=== PATIENT | male | born 1980 | race Caucasian/White ===

== ENCOUNTER 2018-03-12 20:33 | Inpatient (IN) | payer OTHER ==
--- NOTE | 2018-03-12 21:16 | ED ---
Abdominal Pain HPI - General Chief Complaint: Abdominal Pain Stated Complaint: Apendicitis Time Seen by Provider: 03/12/18 21:00 Source: patient, RN notes reviewed, old records reviewed Mode of arrival: ambulatory Limitations: no limitations - History of Present Illness Initial Comments: This is a 37-year-old male with a benign past medical history who states he had the onset 2:30 this morning of lower abdominal pain especially in the right side no fevers no sweats she did have some chills associated with it pain was moderate in severity. Has had some nausea and a right down from [place] where he was seen in the hospital and diagnosed with appendicitis by computed tomography scan. He states she's had previous episodes perhaps for fibroid had pain like this in the past for past several years he would last 3-4 days and then go away spontaneously. This time he thought he better get it checked out. No other complaints no other modifying factors is a former smoker. Patient states he had a handful of nuts about 5:30 PM tonight. He was given IV antibiotics at the other facility. I review the material provided from the other hospital patient did have 8/10 abdominal pain that was stated to be constant and sharp with no radiation. Nothing made it better nothing made it worse. He did have a white blood cell count was elevated initially 11.11 a repeat was 12.79 WBCs. Evaluation those done initially outpatient patient was apparently seen later to hospital and transferred here. Complaint: abdominal pain - Related Data Home Medications Medication Instructions Recorded Confirmed Multivitamins, Thera [Multivitamin 1 tab PO DAILY 03/12/18 03/12/18 (formulary)] Allergies Allergy/AdvReac Type Severity Reaction Status Date / Time No Known Allergies Allergy Verified 03/12/18 20:48 Review of Systems ROS Statement: Those systems with pertinent positive or pertinent negative responses have been documented in the HPI. ROS Other: All systems not noted in ROS Statement are negative. Past Medical History Past Medical History: Hypertension Additional Past Medical History / Comment(s): Chronic neck pain History of Any Multi-Drug Resistant Organisms: None Reported Past Surgical History: Orthopedic Surgery Additional Past Surgical History / Comment(s): right knee Past Psychological History: No Psychological Hx Reported Smoking Status: Former smoker Past Alcohol Use History: Occasional Past Drug Use History: None Reported General Exam - General Exam Comments Initial Comments: This is a well-developed well-nourished awake alert oriented 3 male Limitations: no limitations General appearance: alert, in no apparent distress Head exam: Present: atraumatic, normocephalic, normal inspection Eye exam: Present: normal appearance, PERRL, EOMI. Absent: scleral icterus, conjunctival injection, periorbital swelling ENT exam: Present: normal exam, mucous membranes moist Neck exam: Present: normal inspection. Absent: tenderness, meningismus, lymphadenopathy Respiratory exam: Present: normal lung sounds bilaterally. Absent: respiratory distress, wheezes, rales, rhonchi, stridor Cardiovascular Exam: Present: regular rate, normal rhythm, normal heart sounds. Absent: systolic murmur, diastolic murmur, rubs, gallop, clicks GI/Abdominal exam: Present: soft, tenderness (Right lower quadrant tenderness palpation with some voluntary guarding no definite rebound he does have a mild Rovsing sign no obturator sign no psoas sign at this time), normal bowel sounds. Absent: distended, guarding, rebound, rigid Rectal exam: Present: deferred Extremities exam: Present: normal inspection, full ROM, normal capillary refill. Absent: tenderness, pedal edema, joint swelling, calf tenderness Back exam: Present: normal inspection Neurological exam: Present: alert, oriented X3, CN II-XII intact Psychiatric exam: Present: normal affect, normal mood Skin exam: Present: warm, dry, intact, normal color. Absent: rash Course Vital Signs 03/12/18 20:40 Temperature 97.3 F L Pulse Rate 98 Blood Pressure 163/79 O2 Sat by Pulse 97 Oximetry Medical Decision Making - Medical Decision Making I did review the imaging and reports not available there is evidence of an appendicolith with evidence of appendicitis. I did discuss findings with the patient and his family. I did discuss case with Dr. Núñez. The patient will be admitted nothing by mouth IV antibiotics IV fluids with a target of 6 AM surgery. Disposition Clinical Impression: Appendicitis, acute, Abdominal pain Disposition: ADMITTED IP TO THIS [facility] Condition: Stable Referrals: Lalo Mcdonald MD [Primary Care Provider] - 1-2 days
[2018-03-12] MEDS ORDERED: MORPHINE SULFATE 4 MG/ML SYRINGE IVP STA (21:31)
[2018-03-12] MEDS ORDERED: MORPHINE SULFATE 4 MG/ML SYRINGE IVP PRN (22:10)
[2018-03-12] MEDS ORDERED: ONDANSETRON 4 MG/2 ML VIAL IVP PRN (22:10)
[2018-03-12] MEDS ORDERED: NALOXONE 0.4 MG/ML 1 ML VIAL IV PRN (22:10)
[2018-03-12] MEDS: SODIUM CHLORIDE 0.9% 1,000 ML IV SCH (22:42)
[2018-03-12 23:09] VITALS: BMI 38.2
[2018-03-13] MEDS: PIPERACILLIN-TAZOBACTAM 3.375 GM in DEXTROSE/WATER 1 50ML.BAG IVPB SCH ×3 (00:19→16:16)
[2018-03-13] MEDS ORDERED: SUCCINYLCHOLINE CHLORIDE 100 MG/5 ML SYR IV ONE (06:07)
[2018-03-13] MEDS ORDERED: PROPOFOL 10 MG/ML 20 ML VIAL IV ONE (06:07)
[2018-03-13] MEDS ORDERED: LIDOCAINE 1% INJ 10MG/ML (20 ML MDV) ONE (06:07)
[2018-03-13] MEDS ORDERED: fentaNYL (PF) 50 MCG/ML 2 ML AMP ONE (06:07)
[2018-03-13] MEDS ORDERED: ONDANSETRON 4 MG/2 ML VIAL ONE (06:07)
[2018-03-13] MEDS ORDERED: MIDAZOLAM 2 MG/2 ML VIAL ONE (06:07)
[2018-03-13] MEDS ORDERED: ROCURONIUM BROMIDE 10 MG/ML 10 ML VIAL IV ONE (06:07)
[2018-03-13] MEDS ORDERED: GLYCOPYRROLATE 0.2 MG/ML 2 ML VIAL ONE (06:07)
[2018-03-13] MEDS ORDERED: HEPARIN SODIUM,PORCINE 5,000 UNIT/ML 1 ML VIAL ONE (06:07)
[2018-03-13] MEDS ORDERED: NEOSTIGMINE 1 MG/ML 10 ML VIAL ONE (06:07)
[2018-03-13] MEDS ORDERED: IV FLUID CONTINUATION 800 ML IV ONE (06:07)
--- NOTE | 2018-03-13 06:08 | P.GSHP ---
History of Present Illness H&P Date: 03/13/18 37-year-old male presents to the emergency department from an outside facility complaining of right lower quadrant abdominal pain. At the outside facility he was found to have a leukocytosis and a CT of the abdomen and pelvis that revealed an appendicolith and appendicitis. The patient states that the pain started approximately 18 hours prior to his arrival at the emergency department. He states that the pain is in the right lower quadrant. He admitted to some nausea but no emesis episodes. He states that he does have a mild appetite. He denies any fevers, chills, chest pain or shortness of breath. He states that he feels pain like this every 3 or 4 years, but this time was more severe. He denies any previous surgical history. He denies taking any daily medications. He denies any previous medical history. - Review of Systems All systems: negative Past Medical History Past Medical History: Hypertension Additional Past Medical History / Comment(s): Chronic neck pain History of Any Multi-Drug Resistant Organisms: None Reported Past Surgical History: Orthopedic Surgery Additional Past Surgical History / Comment(s): right knee Past Psychological History: No Psychological Hx Reported Smoking Status: Never smoker Past Alcohol Use History: Occasional Past Drug Use History: None Reported Medications and Allergies Home Medications Medication Instructions Recorded Confirmed Type Multivitamins, Thera [Multivitamin 1 tab PO DAILY 03/12/18 03/12/18 History (formulary)] Allergies Allergy/AdvReac Type Severity Reaction Status Date / Time No Known Allergies Allergy Verified 03/12/18 20:48 Surgical - Exam Osteopathic Statement: *. No significant issues noted on an osteopathic structural exam other than those noted in the History and Physical/Consult. Vital Signs Temp Pulse BP Pulse Ox 97.3 F L 98 163/79 97 03/12/18 20:40 03/12/18 20:40 03/12/18 20:40 03/12/18 20:40 - General well nourished, no distress - ENT normal mucosa, no hearing loss - Neck trachea midline - Respiratory No difficulty with respiration - Abdomen Soft, tender to palpation in the right lower quadrant, nondistended, no rebound , no guarding - Neurologic normal sensation - Psychiatric oriented to time, oriented to person, oriented to place, speech is normal Results - Imaging CT scan - abdomen: image reviewed CT scan - pelvis: image reviewed Assessment and Plan (1) Appendicitis, acute Narrative/Plan: 37-year-old male with acute appendicitis Continue antibiotics Keep nothing by mouth Plan for surgical intervention with laparoscopic appendectomy Further recommendations after surgery Current Visit: Yes Status: Acute Code(s): K35.80 - UNSPECIFIED ACUTE APPENDICITIS SNOMED Code(s): 30714512
[2018-03-13] MEDS ORDERED: SODIUM CHLORIDE 0.9% 50 ML with ceFAZolin 2,000 MG IV ONE ×2 (06:31)
[2018-03-13] MEDS ORDERED: BUPIVACAINE (PF) 0.25% 30 ML VIAL SQ ONE (06:47)
--- NOTE | 2018-03-13 07:06 | P.OP ---
Date of Procedure: 03/13/18 Preoperative Diagnosis: Acute appendicitis Postoperative Diagnosis: Acute appendicitis, purulent Procedure(s) Performed: Laparoscopic appendectomy Anesthesia: ELOISE Surgeon: Tracie Núñez Pathology: other (Appendix) Condition: stable Disposition: floor Indications for Procedure: 37-year-old male presented with complaints of right lower quadrant pain. On workup he was found to have acute appendicitis. Secondary to this, a laparoscopic appendectomy was offered to the patient. Risks, benefits and alternatives were provided. The patient did provide consent prior to attending the operating suite. Operative Findings: Purulent appendicitis Description of Procedure: The patient was brought into the operating suite and placed in supine position on the operating table. Sedation was provided by anesthesia and the patient underwent endotracheal intubation. The patient was then prepped and draped in regular sterile fashion. An incision was made left of the umbilicus and the abdomen was entered under direct visualization using a Visiport. Once the abdomen was entered, pneumoperitoneum was achieved. The patient was then placed in appropriate position and 2 additional 5 mm ports were placed. One port was placed in the suprapubic region, the second port was placed in the left lower quadrant. The appendix was noted to be adhered to the right-sided abdominal wall. Blunt dissection was used to free the appendix from these adhesions. There was some noted purulence in the area. A LigaSure device was then used to dissect the mesoappendix. A window was created between the appendix and the mesoappendix prior to this dissection. Once completely ligated and the base of the appendix was visible a stapler device was used across the base of the appendix to ligate the appendix. The appendix was then placed in an Endo Catch bag and removed from the abdomen. Irrigation was then used in the right lower quadrant. Hemostasis was noted to be maintained at the staple line. A Gray Mar device was then used to close the fascia of the 12 mm trocar site with a 0 Vicryl in [id number] fashion. Pneumoperitoneum was then completely released. All skin incisions were closed with 4-0 Vicryl subcuticular sutures. The patient was then awakened in the operating suite and taken to postanesthesia care unit in stable condition.
[2018-03-13] MEDS ORDERED: NALOXONE 0.4 MG/ML 1 ML VIAL IV PRN (07:49)
[2018-03-13] MEDS: HYDROcodone/APAP 5-325MG 1 EACH TAB PO PRN ×3 (11:17→22:37)
[2018-03-13] MEDS: PANTOPRAZOLE 40 MG/10 ML VIAL IV SCH (12:43)
[2018-03-13] MEDS: HEPARIN SODIUM,PORCINE 5,000 UNIT/ML 1 ML VIAL SQ SCH ×2 (12:43→16:53)
[2018-03-14] MEDS: SODIUM CHLORIDE 0.9% 1,000 ML IV SCH ×2 (00:34→12:55)
[2018-03-14] MEDS: HEPARIN SODIUM,PORCINE 5,000 UNIT/ML 1 ML VIAL SQ SCH ×2 (00:34→07:42)
[2018-03-14] MEDS: PIPERACILLIN-TAZOBACTAM 3.375 GM in DEXTROSE/WATER 1 50ML.BAG IVPB SCH ×2 (00:35→07:42)
[2018-03-14 07:13] LABS: Basophils % (A) 0 %; Eosinophils # (A) 0.1 k/uL (0-0.7); Eosinophils % (A) 1 %; HCT 44.5 % (39.0-53.0); HGB 14.8 gm/dL (13.0-17.5); Lymphocytes # (A) 1.4 k/uL (1.0-4.8); Lymphocytes % (A) 21 %; MCH 28.4 pg (25.0-35.0); MCHC 33.3 g/dL (31.0-37.0); MCV 85.3 fL (80.0-100.0); Mean Platelet Volume 7.6; Monocytes # (A) 0.5 k/uL (0-1.0); Monocytes % (A) 7 %; Neutrophils % (A) 70 %; Platelet Count 175 k/uL (150-450); RBC 5.21 m/uL (4.30-5.90); WBC 7.1 k/uL (3.8-10.6)
[2018-03-14 07:27] LABS: Anion Gap 11 mmol/L; Blood Urea Nitrogen 17 mg/dL (9-20); Carbon Dioxide 29 mmol/L (22-30); Chloride 105 mmol/L (98-107); Glucose 90 mg/dL (74-99); Sodium 145 mmol/L (137-145)
[2018-03-14] MEDS: PANTOPRAZOLE 40 MG/10 ML VIAL IV SCH (07:42)
[2018-03-14 07:56] VITALS: BP 152/80; PULSE 70; RESP 17; TEMP 97.4
--- NOTE | 2018-03-14 13:41 | P.DS ---
Providers Date of admission: 03/13/18 14:00 Expected date of discharge: 03/14/18 Attending physician: Tracie Núñez DO Primary care physician: Lalo Mcdonald - Discharge Diagnosis(es) (1) Appendicitis, acute Status: Acute Hospital Course: The patient presented to the emergency department with abdominal pain. Workup showed acute appendicitis. He was taken to the OR where he underwent a laparoscopic appendectomy. Postoperatively he did well. He was able to be increased on his diet and activity. He was having less pain than preoperatively. No fevers. [place] to be stable for discharge. Given postoperative instructions. Use Tylenol or Motrin for pain. Call if he developed concerns of wound infection, nausea, vomiting, recurrent right lower quadrant pain, fevers or chills. Procedures: Laparoscopic appendectomy Patient Condition at Discharge: Good Plan - Discharge Summary Discharge Rx Participant: Yes New Discharge Prescriptions: No Action Multivitamins, Thera [Multivitamin (formulary)] 1 tab PO DAILY Discharge Medication List Multivitamins, Thera [Multivitamin (formulary)] 1 tab PO DAILY 03/12/18 [History ] Follow up Appointment(s)/Referral(s): Lalo Mcdonald MD [Primary Care Provider] - 1-2 days Tracie Núñez DO [Doctor of Osteopathic Medicine] - 10 Days Patient Instructions/Handouts: Laparoscopic Appendectomy (DC) Activity/Diet/Wound Care/Special Instructions: Continue to increase activity daily No heavy lifting greater than 15 pounds until cleared by surgeon Okay to shower, do not scrub incisions with soap No swimming or hot tubs Place dressing on wounds if there is any drainage. Discharge Disposition: HOME SELF-CARE
== END 2018-03-14 13:34 | disposition home or self-care (01) | DRG 343 ==
LOC: EC 20:33 → 3SUR 22:10 → OBSVTOIN 03-13 14:00
PROVIDERS: ADMIT Surgery; ATTEND Surgery
PROC: 0DTJ4ZZ Resection of Appendix, Percutaneous Endoscopic Approach (ICD-10-PCS; principal; 2018-03-13 06:00)
DX: K35.80 Unspecified acute appendicitis (principal); I10 Essential (primary) hypertension; M54.2 Cervicalgia; G89.29 Other chronic pain; K38.1 Appendicular concretions; Z87.891 Personal history of nicotine dependence
CPT/HCPCS: 80048; 85025; 88304; 96374; 99285

== ENCOUNTER → 2019-10-08 | Outpatient (CLI) | payer OTHER ==
--- NOTE | 2019-10-08 16:39 | CT ---
EXAMINATION TYPE: CT elbow LT wo con DATE OF EXAM: 10/08/2019 COMPARISON: None. HISTORY: Left elbow pain, loose body anterior aspect, and primary osteoarthritis all per order. CT DLP: 155.8 mGycm Automated exposure control for dose reduction was used. FINDINGS: There is mild to moderate spurring involving the ulnohumeral joint and radial head articulation with the distal humerus. Some cortical irregularity at the capitellum suggests possibly possible osteochon dral injury sagittal image 22 measuring 8 mm. No bony fragmentation is identified. There are some dion cific or ossific intra-articular loose bodies anterior and posterior to the distal humerus seen best sagittal image 32 for reference larger is anteriorly measuring 10 mm with small joint effusion. Tiny spur from the olecranon or distal triceps tendon attachment. Muscle bulk is maintained. Mild sof t tissue swelling and subcutaneous edema along the dorsal aspect of the proximal forearm is noted. No suspicious fluid collection is seen. IMPRESSION: As above.
== END | disposition home or self-care (01) ==
LOC: RADCTMAIN 15:39
PROVIDERS: ATTEND Orthopaedic Surgery
DX: M19.022 Primary osteoarthritis, left elbow (principal); M24.022 Loose body in left elbow; M25.511 Pain in right shoulder